=== PATIENT | female | born 1965 | race Caucasian/White ===

== ENCOUNTER 2019-02-04 14:33 | Emergency (ER) | payer SELFPAY ==
[~2019-02-04] VITALS: Ht 167.6 cm; Wt 61.3 kg
[2019-02-04 14:38] VITALS: BP 119/77
== END 2019-02-04 15:19 | disposition left against medical advice (07) ==
LOC: EMS 14:36
DX: M25.532 Pain in left wrist (principal); M79.602 Pain in left arm; Z53.21 Procedure and treatment not carried out due to patient leaving prior to being seen by health care provider

== ENCOUNTER 2022-04-28 15:18 | Emergency (ER) | payer MEDICAID ==
[~2022-04-28] VITALS: Ht 165.1 cm; Wt 60.9 kg
[2022-04-28 16:22] LABS: EOSINOPHILS % (AUTO) 6.7 % (1.0-6.0); HEMATOCRIT 37.6 % (36-46); HEMOGLOBIN 12.3 g/dL (12.0-16.0); LYMPHOCYTES # (AUTO) 2.1 K/uL (1.0-4.8); LYMPHOCYTES % (AUTO) 40.9 % (22.0-44.0); MEAN CORPUSCULAR HEMOGLOBIN 28.7 pg (26.0-34.0); MEAN CORPUSCULAR HGB CONC 32.7 G/dL (31.0-37.0); MEAN CORPUSCULAR VOLUME 88 fL (80-100); MONOCYTES # (AUTO) 0.4 K/uL (0.1-1.0); MONOCYTES % (AUTO) 7.9 % (2.0-9.0); NEUTROPHILS # (AUTO) 2.2 K/uL (1.8-7.7); NEUTROPHILS % (AUTO) 43.5 % (40.0-70.0); PLATELET COUNT (AUTO) 210 K/uL (150-450); RED BLOOD CELL COUNT(AUTO) 4.27 MIL/uL (4.00-5.20); RED CELL DISTRIBUTION WIDTH 13.9 % (11.5-14.5)
[2022-04-28 16:34] LABS: ANION GAP 10 mmol/L (8-16); CALCIUM, TOTAL 9.3 mg/dL (8.8-10.5); CARBON DIOXIDE 27 mmol/L (22-29); CHLORIDE 108 mmol/L (98-107); CREATININE 0.67 mg/dL (0.60-1.30); GLUCOSE,RANDOM 108 mg/dL (70-110); POTASSIUM 4.5 mmol/L (3.5-5.1); SODIUM SERUM 145 mmol/L (136-145); UREA NITROGEN, BLOOD 12 mg/dL (7-18)
[2022-04-28 16:39] LABS: ALANINE AMINOTRANSFERASE 14 U/L (12-78); ALBUMIN 3.4 g/dL (3.4-5.0); ALKALINE PHOSPHATASE 50 U/L (46-116); ASPARTATE AMINOTRANSFERASE 12 U/L (15-37); BILIRUBIN,TOTAL 0.3 mg/dL (0.1-1.0); TOTAL PROTEIN, SERUM 6.3 g/dL (6.4-8.2)
[2022-04-28 16:42] LABS: GLOMERULAR FILTR. RATE CALC > 60 mL/min (>60)
[2022-04-28 19:04] VITALS: BP 108/66
[2022-04-28 19:30] LABS: COVID AG,FIA SOURCE NASOPHARYNGEAL
[2022-04-28] MEDS ORDERED: OLAN5TAB52 PO (19:44)
== END 2022-04-28 20:31 | disposition home or self-care (01) ==
LOC: EMS 15:33
DX: Z04.6 Encounter for general psychiatric examination, requested by authority (principal); Z20.822 Contact with and (suspected) exposure to COVID-19; Z86.69 Personal history of other diseases of the nervous system and sense organs
CPT/HCPCS: 99285; 87426; 80053; 85025; 36415; G0480

== ENCOUNTER 2022-04-28 19:29 | Inpatient (IN) | payer MEDICAID ==
[~2022-04-28] VITALS: Ht 165.1 cm; Wt 61.4 kg
[2022-04-28] MEDS ORDERED: OLAN5TAB52 PO (19:44)
[2022-04-28] MEDS ORDERED: INFLUENZA VIRUS VACCINE QVS 2022-23 (6MO+)/PF 60 MCG/0.5 ML SYRINGE IM. ONE (21:15)
[2022-04-28] MEDS ORDERED: LORazepam 2 MG TABLET PO PRN (21:15)
[2022-04-28] MEDS ORDERED: HALOPERIDOL 5 MG TABLET PO PRN (21:15)
[2022-04-28] MEDS ORDERED: ZOLPIDEM TARTRATE 10 MG TABLET PO PRN (21:15)
[2022-04-28 22:04] VITALS: BP 113/75
[2022-04-29 07:13] LABS: BASOPHILS % (AUTO) 1.2 % (0.0-2.0); EOSINOPHILS % (AUTO) 7.9 % (1.0-6.0); HEMATOCRIT 39.1 % (36-46); HEMOGLOBIN 12.8 g/dL (12.0-16.0); LYMPHOCYTES # (AUTO) 1.6 K/uL (1.0-4.8); LYMPHOCYTES % (AUTO) 35.1 % (22.0-44.0); MEAN CORPUSCULAR HEMOGLOBIN 28.8 pg (26.0-34.0); MEAN CORPUSCULAR HGB CONC 32.8 G/dL (31.0-37.0); MEAN CORPUSCULAR VOLUME 88 fL (80-100); MONOCYTES # (AUTO) 0.3 K/uL (0.1-1.0); MONOCYTES % (AUTO) 6.6 % (2.0-9.0); NEUTROPHILS # (AUTO) 2.3 K/uL (1.8-7.7); NEUTROPHILS % (AUTO) 49.2 % (40.0-70.0); PLATELET COUNT (AUTO) 209 K/uL (150-450); RED BLOOD CELL COUNT(AUTO) 4.44 MIL/uL (4.00-5.20); RED CELL DISTRIBUTION WIDTH 14.1 % (11.5-14.5)
[2022-04-29 07:31] LABS: HEMOGLOBIN A1C 5.5 % (3.8-5.6)
[2022-04-29 07:48] LABS: ALANINE AMINOTRANSFERASE 16 U/L (12-78); ALBUMIN 3.5 g/dL (3.4-5.0); ALKALINE PHOSPHATASE 51 U/L (46-116); ANION GAP 5 mmol/L (8-16); ASPARTATE AMINOTRANSFERASE 13 U/L (15-37); BILIRUBIN,TOTAL 0.4 mg/dL (0.1-1.0); CALCIUM, TOTAL 9.2 mg/dL (8.8-10.5); CARBON DIOXIDE 29 mmol/L (22-29); CHLORIDE 107 mmol/L (98-107); CHOL/HDL RATIO 2.9 (3.9-5.7); CHOLESTEROL 224 mg/dL (131-200); CREATININE 0.69 mg/dL (0.60-1.30); FREE T4 (FREE THYROXINE) 0.99 ng/dL (0.76-1.46); GLUCOSE,RANDOM 95 mg/dL (70-110); HDL CHOLESTEROL 76 mg/dL (40-60); LDL CHOL (CALC.) 137 mg/dL (0-130); POTASSIUM 5.2 mmol/L (3.5-5.1); SODIUM SERUM 141 mmol/L (136-145); THYROID STIMULATING HORMONE 0.99 uIU/mL (0.36-3.74); TOTAL PROTEIN, SERUM 6.5 g/dL (6.4-8.2); TRIGLYCERIDES 56 mg/dL (15-150); UREA NITROGEN, BLOOD 14 mg/dL (7-18)
[2022-04-29 07:51] LABS: GLOMERULAR FILTR. RATE CALC > 60 mL/min (>60)
[2022-04-29 08:35] VITALS: BP 97/67
[2022-04-29] MEDS ORDERED: SODIUM POLYSTYRENE SULFONATE 15 GM/60 ML SUSPENSION BOTTLE PO ONE (09:00)
[2022-04-29] MEDS: OLANZapine 5 MG TABLET PO SCH ×2 (13:04→20:57)
[2022-04-29] MEDS ORDERED: DOCUSATE SODIUM 100 MG CAPSULE PO PRN (16:00)
[2022-04-29] MEDS ORDERED: GuaiFENesin/D-METHORPHAN [SUGAR-FREE] 200-20MG/10 ML SYRUP UDCUP PO PRN (16:00)
[2022-04-29] MEDS ORDERED: ONDANSETRON HCL 4 MG TABLET PO PRN (16:00)
[2022-04-29] MEDS ORDERED: NICOTINE 14 MG/24 HOUR PATCH TD PRN (16:00)
[2022-04-29] MEDS ORDERED: MAG HYDROX/AL HYDROX/SIMETH ES 30 ML SUSPENSION UDCUP PO PRN (16:00)
[2022-04-29] MEDS ORDERED: PETROLATUM,WHITE 28 GM JELLY TP PRN (16:00)
[2022-04-29] MEDS ORDERED: CloNIDine HCL 0.1 MG TABLET PO PRN (16:00)
[2022-04-29] MEDS ORDERED: ACETAMINOPHEN 325 MG TABLET PO PRN (16:00)
[2022-04-29] MEDS ORDERED: ALBUTEROL SULFATE HFA 90 MCG/PUFF 8 GM INHALER IH PRN (16:00)
[2022-04-29] MEDS ORDERED: IBUPROFEN 400 MG TABLET PO PRN (16:00)
[2022-04-29] MEDS ORDERED: MAGNESIUM HYDROXIDE SUSPENSION 30 ML UDCUP PO PRN (16:00)
[2022-04-29] MEDS ORDERED: LOPERAMIDE HCL 2 MG CAPSULE PO PRN (16:00)
[2022-04-29] MEDS: FLUoxetine HCL 10 MG CAPSULE PO SCH (16:35)
[2022-04-29 20:00] VITALS: BP 97/68
[2022-04-30 08:20] VITALS: BP 102/64
[2022-04-30] MEDS: FLUoxetine HCL 10 MG CAPSULE PO SCH (08:45)
[2022-04-30] MEDS: OLANZapine 5 MG TABLET PO SCH (08:45)
[2022-04-30] MEDS ORDERED: PROZ10 PO (11:48)
[2022-04-30] MEDS ORDERED: OLAN5TAB52 PO (11:48)
== END 2022-04-30 13:05 | disposition home or self-care (01) | DRG 751 ==
LOC: B3A 20:02
PROVIDERS: ADMIT Psychiatry & Neurology Child & Adolescent Psychiatry; ATTEND Psychiatry & Neurology Child & Adolescent Psychiatry
DX: F29 Unspecified psychosis not due to a substance or known physiological condition (principal); I95.9 Hypotension, unspecified; Z91.199 Patient's noncompliance with other medical treatment and regimen due to unspecified reason; E87.5 Hyperkalemia; F10.10 Alcohol abuse, uncomplicated; F20.9 Schizophrenia, unspecified; F41.9 Anxiety disorder, unspecified; Z79.899 Other long term (current) drug therapy
CPT/HCPCS: 80053; 80061; 83036; 84132; 84439; 84443; 85025